=== PATIENT | female | born 1965 | race Caucasian/White ===

== ENCOUNTER 2016-07-20 15:07 | Emergency (ER) | payer MEDICARE ==
[2016-07-20] MEDS ORDERED: ONDANSETRON 4 MG VIAL ONE ×3 (17:43→19:13)
[2016-07-20] MEDS ORDERED: MORPHINE 4 MG/ML SYR ONE (18:01)
[2016-07-20] MEDS ORDERED: DIPHENHYDRAMINE 50 MG/ML VIAL ONE (19:13)
[2016-07-20] MEDS ORDERED: KETOROLAC 30 MG/ML VIAL ONE (19:13)
[2016-07-20] MEDS ORDERED: DILAUDID 1 MG/ML AMP ONE ×4 (20:27→22:58)
[2016-07-20] MEDS ORDERED: cloNIDine 0.2 MG/24H TDSY TRANSDERM ONE (21:05)
== END 2016-07-20 22:55 | disposition other institution (70) ==
LOC: ER 15:07
CPT/HCPCS: 36415 ×2; 74176 ×2; 80053 ×2; 81001 ×2; 83690 ×2; 85025 ×2; 87088 ×2; 96374 ×2; 96375 ×2; 96376 ×2; 99284; J1170; J1885; J2270; J2405